=== PATIENT | male | born 1975 ===

== ENCOUNTER 2018-06-08 10:55 | Outpatient (CLI) | payer OTHER ==
[~2018-06-08] VITALS: Ht 170.2 cm; Wt 62.1 kg
== END 2018-06-08 11:15 | disposition home or self-care (01) ==
LOC: OFIC 805 10:55
DX: D10.2 Benign neoplasm of floor of mouth (principal); R22.1 Localized swelling, mass and lump, neck

== ENCOUNTER 2018-06-16 10:05 | Outpatient (CLI) | payer OTHER ==
[~2018-06-16] VITALS: Ht 152.4 cm; Wt 62.1 kg
== END 2018-06-16 10:15 | disposition home or self-care (01) ==
LOC: OFIC 805 10:05
DX: K11.6 Mucocele of salivary gland (principal); R22.1 Localized swelling, mass and lump, neck

== ENCOUNTER 2018-07-07 07:18 | Outpatient (CLI) | payer OTHER | END 2018-07-07 07:22 | disposition home or self-care (01) | LOC: SONOGRAMA 07:18 | DX: R59.9 Enlarged lymph nodes, unspecified (principal) ==

== ENCOUNTER 2018-07-27 12:33 | Outpatient (CLI) | payer OTHER ==
[~2018-07-27] VITALS: Ht 152.4 cm; Wt 62.1 kg
== END 2018-07-27 12:40 | disposition home or self-care (01) ==
LOC: OFIC 805 12:33
DX: E04.1 Nontoxic single thyroid nodule (principal); D10.2 Benign neoplasm of floor of mouth